=== PATIENT | female | born 1980 | race Caucasian/White ===

== ENCOUNTER → 2023-11-26 10:50 | Outpatient (REF) | payer BC, SELFPAY | LOC: HWRAD 10:50 | PROVIDERS: ATTENDING PHYSICIAN Family Medicine | DX: R59.0 Localized enlarged lymph nodes (principal); M54.2 Cervicalgia; E07.9 Disorder of thyroid, unspecified; R49.9 Unspecified voice and resonance disorder; R09.A2 Foreign body sensation, throat | CPT/HCPCS: 76536 ==

== ENCOUNTER → 2025-05-05 17:04 | Outpatient (REF) | payer OTHER, SELFPAY | LOC: RAD 17:04 | PROVIDERS: ATTENDING PHYSICIAN Family Medicine | DX: Z12.39 Encounter for other screening for malignant neoplasm of breast (principal); R79.89 Other specified abnormal findings of blood chemistry; E07.89 Other specified disorders of thyroid; M54.2 Cervicalgia | CPT/HCPCS: 70492; Q9967 ==